=== PATIENT | male | born 1960 | race Asian ===

== ENCOUNTER 2021-12-20 18:06 | Inpatient (IN) | payer OTHER ==
[~2021-12-20] VITALS: Ht 170.2 cm; Wt 66.0 kg
[2021-12-20 18:32] LABS: BASOPHILS % (AUTO) 0.6 % (0.0-2.0); EOSINOPHILS % (AUTO) 1.6 % (1.0-6.0); HEMATOCRIT 34.3 % (41-53); HEMOGLOBIN 11.6 g/dL (13.5-17.5); LYMPHOCYTES % (AUTO) 24.6 % (22.0-44.0); MEAN CORPUSCULAR HEMOGLOBIN 31.9 pg (26.0-34.0); MEAN CORPUSCULAR HGB CONC 33.9 G/dL (31.0-37.0); MEAN CORPUSCULAR VOLUME 94 fL (80-100); NEUTROPHILS # (AUTO) 5.1 K/uL (1.8-7.7); NEUTROPHILS % (AUTO) 61.2 % (40.0-70.0); PLATELET COUNT (AUTO) 285 K/uL (150-450); RED BLOOD CELL COUNT(AUTO) 3.64 MIL/uL (4.50-5.90); RED CELL DISTRIBUTION WIDTH 12.9 % (11.5-14.5)
[2021-12-20 18:40] LABS: CALCIUM, TOTAL 9.5 mg/dL (8.8-10.5); CREATININE 1.28 mg/dL (0.60-1.30); POTASSIUM 3.9 mmol/L (3.5-5.1)
[2021-12-20] MEDS ORDERED: ALTEPLASE 5.2 MG in WATER FOR INJECTION,STERILE 5.2 ML IV ONE (18:40)
[2021-12-20] MEDS ORDERED: WATER FOR INJECTION STERILE IV ONE (18:40)
[2021-12-20] MEDS ORDERED: ALTEPLASE IV ONE (18:40)
[2021-12-20 18:43] LABS: PROTHROMBIN TIME 10.7 SEC (9.4-11.6)
[2021-12-20] MEDS ORDERED: IOHEXOL 300 MG/ML 100 ML VIAL ONE (18:44)
[2021-12-20] MEDS ORDERED: SODIUM CHLORIDE 0.9% 100 ML ONE (18:44)
[2021-12-20] MEDS ORDERED: ALTEPLASE PER STROKE PROTOCOL CLINICAL ONE (18:45)
[2021-12-20 18:46] LABS: BILIRUBIN,TOTAL 0.5 mg/dL (0.1-1.0); TOTAL PROTEIN, SERUM 7.8 g/dL (6.4-8.2)
[2021-12-20] MEDS ORDERED: ROSU20TA73 PO (18:53)
[2021-12-20] MEDS ORDERED: METF-1211 PO (18:53)
[2021-12-20] MEDS ORDERED: HYDR50TA36 PO (18:53)
[2021-12-20] MEDS ORDERED: METO25 PO (18:53)
[2021-12-20] MEDS ORDERED: AMLO-258 PO (18:53)
[2021-12-20] MEDS ORDERED: HYDR25TA2 PO (18:53)
[2021-12-20] MEDS ORDERED: LISI-894 PO (18:53)
[2021-12-20] MEDS ORDERED: SPIR-37 PO (18:53)
[2021-12-20] MEDS ORDERED: GLIP5TAB12 PO (18:53)
[2021-12-20] MEDS ORDERED: CLOP75TA60 PO (18:53)
[2021-12-20 19:27] LABS: COVID AG,FIA SOURCE NASOPHARYNGEAL
[2021-12-20] MEDS ORDERED: ONDANSETRON HCL 4 MG/2 ML VIAL IVP PRN (20:00)
[2021-12-20] MEDS ORDERED: ACETAMINOPHEN 325 MG TABLET PO PRN ×2 (20:00→20:30)
[2021-12-20] MEDS ORDERED: DEXTROSE 50%-WATER 25 GM/50 ML SYRINGE IVP PRN (20:45)
[2021-12-20] MEDS ORDERED: INSULIN GLARGINE,HUM.REC.ANLOG 100 UNITS/ML SQ SCH (21:00)
[2021-12-20] MEDS: HydrALAZINE HCL 50 MG TABLET PO SCH (21:16)
[2021-12-20] MEDS: METOPROLOL TARTRATE 25 MG TABLET PO SCH (21:16)
[2021-12-20] MEDS: INSULIN LISPRO 100 UNITS/ML SQ PRN (21:29)
[2021-12-20 21:41] LABS: GLUCOSE,POINT OF CARE 275 MG/DL (70-110)
[2021-12-20] MEDS: ONDANSETRON HCL 4 MG/2 ML VIAL IVP PRN (22:30)
[2021-12-21 06:08] LABS: BASOPHILS % (AUTO) 0.1 % (0.0-2.0); EOSINOPHILS % (AUTO) 0 % (1.0-6.0); HEMATOCRIT 35.2 % (41-53); HEMOGLOBIN 11.9 g/dL (13.5-17.5); LYMPHOCYTES # (AUTO) 0.6 K/uL (1.0-4.8); LYMPHOCYTES % (AUTO) 3.5 % (22.0-44.0); MEAN CORPUSCULAR HEMOGLOBIN 31.8 pg (26.0-34.0); MEAN CORPUSCULAR HGB CONC 33.9 G/dL (31.0-37.0); MEAN CORPUSCULAR VOLUME 94 fL (80-100); MONOCYTES # (AUTO) 1.1 K/uL (0.1-1.0); MONOCYTES % (AUTO) 6.8 % (2.0-9.0); NEUTROPHILS # (AUTO) 14.2 K/uL (1.8-7.7); PLATELET COUNT (AUTO) 298 K/uL (150-450); RED BLOOD CELL COUNT(AUTO) 3.75 MIL/uL (4.50-5.90); RED CELL DISTRIBUTION WIDTH 13.2 % (11.5-14.5)
[2021-12-21 06:13] LABS: NEUTROPHILS % (AUTO) 89.6 % (40.0-70.0)
[2021-12-21 06:20] LABS: CALCIUM, TOTAL 9.2 mg/dL (8.8-10.5); CREATININE 1.29 mg/dL (0.60-1.30); MAGNESIUM 2.1 mg/dL (1.80-2.40); POTASSIUM 3.9 mmol/L (3.5-5.1)
[2021-12-21 07:46] LABS: GLUCOMETER DEV NAME(LOC) ERT.5; GLUCOSE,POINT OF CARE 300 MG/DL (70-110)
[2021-12-21] MEDS: METOPROLOL TARTRATE 25 MG TABLET PO SCH (08:11)
[2021-12-21] MEDS: AmLODIPine BESYLATE 10 MG TABLET PO SCH (08:11)
[2021-12-21] MEDS: SPIRONOLACTONE 25 MG TABLET PO SCH (08:11)
[2021-12-21] MEDS: ROSUVASTATIN CALCIUM 20 MG TABLET PO SCH (08:12)
[2021-12-21] MEDS: ONDANSETRON HCL 4 MG/2 ML VIAL IVP PRN (08:12)
[2021-12-21] MEDS: LISINOPRIL 20 MG TABLET PO SCH (08:12)
[2021-12-21] MEDS: HydrALAZINE HCL 50 MG TABLET PO SCH (08:12)
[2021-12-21] MEDS: INSULIN LISPRO 100 UNITS/ML SQ PRN ×4 (08:13→21:27)
[2021-12-21] MEDS ORDERED: HYDROCHLOROTHIAZIDE 25 MG TABLET PO SCH (09:00)
[2021-12-21 09:15] VITALS: BP 136/87
[2021-12-21] MEDS ORDERED: DEXTROSE 5%-0.45% SODIUM CHL 1,000 ML IV ONE (10:15)
[2021-12-21] MEDS ORDERED: *CLINICAL-LEVOFLOXACIN IVPB DOSING CLINICAL ONE (10:15)
[2021-12-21] MEDS ORDERED: PNEUMOCOCCAL VACCINE POLYVALENT 0.5 ML VIAL [PPSV23] IM. ONE (11:15)
[2021-12-21] MEDS ORDERED: INFLUENZA VIRUS VACCINE QVS 2022-23 (6MO+)/PF 60 MCG/0.5 ML SYRINGE IM. ONE (11:15)
[2021-12-21] MEDS: LEVOFLOXACIN 750 MG/D5% WATER 150 ML IV SCH (11:35)
[2021-12-21] MEDS: HydrALAZINE HCL 20 MG/ML VIAL IVP SCH ×2 (11:36→17:34)
[2021-12-21 12:00] VITALS: BP 162/82
[2021-12-21 16:00] VITALS: BP 141/74
[2021-12-21 19:16] LABS: GLUCOSE,POINT OF CARE 277 MG/DL (70-110)
[2021-12-21 19:16] LABS: GLUCOSE,POINT OF CARE 188 MG/DL (70-110)
[2021-12-21 20:00] VITALS: BP 155/74
[2021-12-21] MEDS ORDERED: INSULIN GLARGINE,HUM.REC.ANLOG 100 UNITS/ML SQ SCH (21:00)
[2021-12-21] MEDS: LABETALOL HCL 5 MG/ML 20 ML VIAL IVP SCH (21:17)
[2021-12-21 21:45] LABS: GLUCOSE,POINT OF CARE 205 MG/DL (70-110)
[2021-12-22] VITALS: BP 133/68
[2021-12-22] MEDS ORDERED: HEPARIN SODIUM,PORCINE 5,000 UNITS/ML VIAL SQ SCH
[2021-12-22] MEDS: HydrALAZINE HCL 20 MG/ML VIAL IVP SCH ×4 (00:13→17:00)
[2021-12-22] MEDS: INSULIN LISPRO 100 UNITS/ML SQ PRN ×4 (00:37→17:11)
[2021-12-22 01:26] LABS: APPEARANCE,URINE HAZY (CLEAR); BILIRUBIN,URINE NEGATIVE (NEGATIVE); GLUCOSE, URINE (UA) TRACE mg/dL (NEGATIVE); KETONES,URINE NEGATIVE (NEGATIVE); LEUKOCYTE ESTERASE ,URINE TRACE (NEGATIVE); NITRATE,URINE NEGATIVE (NEGATIVE); OCCULT BLOOD,URINE LARGE (NEGATIVE); PH,URINE 5.5 (5.0-8.0); PROTEIN,URINE 100-200,SEE CONFIRM mg/dL (NEGATIVE); SPECIFIC GRAVITIY, URINE 1.018 (1.003-1.030); UROBILINOGEN,URINE <=1.0 mg/dL (<=1.0)
[2021-12-22 01:41] LABS: SULFOSALICYLIC ACID,URINE 1+ (Negative)
[2021-12-22 01:42] LABS: BACTERIA,URINE None Seen /HPF (None Seen); RBC,URINE >100 /HPF (0-2); WBC,URINE 0-2 /HPF (0-5)
[2021-12-22 04:00] VITALS: BP 143/78
[2021-12-22 06:13] LABS: HEMOGLOBIN A1C 6.6 % (3.8-5.6)
[2021-12-22 06:26] LABS: GLUCOSE,POINT OF CARE 195 MG/DL (70-110)
[2021-12-22 07:15] LABS: CALCIUM, TOTAL 9.4 mg/dL (8.8-10.5); CHOL/HDL RATIO 1.8 (4.2-7.3); CREATININE 1.6 mg/dL (0.60-1.30); POTASSIUM 3.6 mmol/L (3.5-5.1)
[2021-12-22 08:00] VITALS: BP 130/69
[2021-12-22] MEDS ORDERED: ASPIRIN 81 MG CHEWABLE TABLET PO SCH (08:30)
[2021-12-22] MEDS: ROSUVASTATIN CALCIUM 20 MG TABLET PO SCH (08:43)
[2021-12-22] MEDS: AmLODIPine BESYLATE 10 MG TABLET PO SCH (08:43)
[2021-12-22] MEDS: SPIRONOLACTONE 25 MG TABLET PO SCH (08:43)
[2021-12-22] MEDS: LISINOPRIL 20 MG TABLET PO SCH (08:44)
[2021-12-22] MEDS: LABETALOL HCL 5 MG/ML 20 ML VIAL IVP SCH (08:45)
[2021-12-22 12:00] VITALS: BP 140/80
[2021-12-22] MEDS: LEVOFLOXACIN 750 MG/D5% WATER 150 ML IV SCH (12:34)
[2021-12-22] MEDS ORDERED: SODIUM CHLORIDE 0.9% 250 ML IV ONE (12:44)
[2021-12-22 16:00] VITALS: BP 144/77
[2021-12-22] MEDS: ONDANSETRON HCL 4 MG/2 ML VIAL IVP PRN (18:47)
[2021-12-22 19:16] LABS: GLUCOSE,POINT OF CARE 200 MG/DL (70-110)
[2021-12-22 19:16] LABS: GLUCOSE,POINT OF CARE 234 MG/DL (70-110)
[2021-12-22 19:16] LABS: GLUCOSE,POINT OF CARE 170 MG/DL (70-110)
[2021-12-22] MEDS ORDERED: METOPROLOL TARTRATE 25 MG TABLET PO SCH (21:00)
[2021-12-22] MEDS ORDERED: APIXABAN 5 MG TABLET PO SCH ×2 (21:00)
[2021-12-23] MEDS ORDERED: LISINOPRIL 20 MG TABLET PO SCH (09:00)
[2021-12-23] MEDS ORDERED: AmLODIPine BESYLATE 5 MG TABLET PO SCH (09:00)
[2021-12-23] MEDS ORDERED: LEVOFLOXACIN 750 MG/D5% WATER 150 ML IV SCH (13:00)
== END 2021-12-22 19:31 | disposition short-term general hospital (02) | DRG 45 ==
LOC: EMS 18:06 → ICU 12-21 07:30
PROVIDERS: ADMIT Internal Medicine; ATTEND Internal Medicine
DX: I63.9 Cerebral infarction, unspecified (principal); J18.9 Pneumonia, unspecified organism; I48.19 Other persistent atrial fibrillation; N17.9 Acute kidney failure, unspecified; R65.10 Systemic inflammatory response syndrome (SIRS) of non-infectious origin without acute organ dysfunction; E87.1 Hypo-osmolality and hyponatremia; I69.351 Hemiplegia and hemiparesis following cerebral infarction affecting right dominant side; E11.65 Type 2 diabetes mellitus with hyperglycemia; D64.9 Anemia, unspecified; I10 Essential (primary) hypertension; Z20.822 Contact with and (suspected) exposure to COVID-19; R29.712 NIHSS score 12; I69.320 Aphasia following cerebral infarction; Z79.01 Long term (current) use of anticoagulants; Z79.4 Long term (current) use of insulin; Z82.5 Family history of asthma and other chronic lower respiratory diseases; Z79.899 Other long term (current) drug therapy
CPT/HCPCS: 51702; 70450; 70496; 71045; 74230; 80048; 80053; 80061; 81001; 81002; 82962; 83036; 83735; 83880; 84484; 85025; 85610; 87081; 92610; 92611; 93005; 93306; 93880; 97112; 97167; 97535; 99291; G0378; J0360; J1815; J1956; J2405; J2997; J3490; J7050; Q9967; 36415-L1; 36415-TC